=== PATIENT | female | born 1975 | race Caucasian/White ===

== ENCOUNTER 2020-08-22 23:30 | Emergency (ER) | payer BC ==
[2020-08-22 23:41] VITALS: BP 147/81; PULSE 93; TEMP 98.8; BMI 33.5
[2020-08-22 23:55] LABS: EPITHELIAL CELLS FEW /hpf
[2020-08-23] MEDS ORDERED: NITROFURANTOIN MACROCRYSTAL 50 MG CAPSULE (FP) PO ONE (00:15)
[2020-08-23] MEDS ORDERED: NITROFURANTOIN MACROCRYSTAL 50 MG CAPSULE (FP) ONE (00:21)
== END 2020-08-23 00:53 | disposition home or self-care (01) ==
LOC: FER 23:30
DX: N39.0 Urinary tract infection, site not specified (principal)
CPT/HCPCS: 81003; 81015; 84703; 87086; 87186; 99284-25